=== PATIENT | female | born 1975 | race African-American/Black ===

== ENCOUNTER 2018-06-02 11:52 | Emergency (ER) | payer OTHER ==
[2018-06-02 12:23] VITALS: BP 117/78; PULSE 87; TEMP 97.4; BMI 40.7
--- NOTE | 2018-06-02 13:35 | PDOC ---
History of Present Illness - General Chief Complaint: Injury Stated Complaint: INJURY Time Seen by Provider: 06/02/18 12:38 History Source: Patient Exam Limitations: No Limitations - History of Present Illness Initial Comments: CHIEF COMPLAINT: 43 y/o afebrile female with no significant PMH c/o facial pain and swelling and left wrist pain s/p slip and fall down some stairs today. HISTORY OF PRESENT ILLNESS: The patient was at work today when she tripped over her dress and fell face first down more than 10 steps. She states she was able to get up and walk to the bathroom but then realized her face was swollen and bruised. She denies LOC, neck pain, n/v/d, dizziness, changes in vision/ hearing, n/v/d, CP, SOB, abd pain, back pain, numbness/tingling in extremities. The patient states she is starting to have a headache now. Vital signs on arrival are within normal limits. REVIEW OF SYSTEMS: GENERAL/CONSTITUTIONAL: No fever/chills. No weakness. No weight change. HEAD, EYES, EARS, NOSE AND THROAT: +swelling and bruising to face. No change in vision. No ear pain or discharge. No sore throat. CARDIOVASCULAR: No chest pain or shortness of breath. RESPIRATORY: No cough, wheezing, or hemoptysis. GASTROINTESTINAL: No abd pain, nausea, vomiting, diarrhea. GENITOURINARY: No dysuria, frequency, or change in urination. MUSCULOSKELETAL: +left wrist pain. No neck or back pain. SKIN: No rash or easy bruising. NEUROLOGIC: +headache. No vertigo, loss of consciousness, or loss of sensation. PHYSICAL EXAM: GENERAL: The patient is awake, alert, and fully oriented, in no acute distress. She is well appearing, ambulatory, in NAD or obvious discomfort, speaks in full sentences without difficulty. HEAD: Few small hematomas to forehead NECK: No midline cervical spine TTP or step offs. Full ROM of cervical spine. ENT: Pupils equal, round and reactive to light, extraocular movements intact, sclera anicteric, conjunctiva clear. Some ecchymosis to b/l infraorbital regions, worse on left eye. Some superficial swelling to left upper eyelid. Swelling and ecchymosis to bridge of nose with superficial abrasion to bridge of nose. No crepitus or obvious deformities to face. No nasal septal hematomas LUNGS: Clear to auscultation bilaterally. Normal excursion. No respiratory distress or use of accessory muscles. CV: RRR, S1/S2, no MRG. Cap refill < 2 sec. ABDOMEN: Soft, non-distended, non-tender even to deep palpation, no hepatomegaly or splenomegaly, no masses. EXTREMITIES: Normal range of motion, no edema. TTP of left wrist. NEUROLOGICAL: Normal speech, normal gait. CN II-XII grossly intact. SKIN: Warm, dry, normal turgor, no rashes or lesions noted. Past History - Past Medical History Allergies/Adverse Reactions: Allergies Allergy/AdvReac Type Severity Reaction Status Date / Time No Known Allergies Allergy Verified 03/14/14 18:25 Home Medications: Ambulatory Orders Cephalexin Monohydrate [Keflex -] 500 mg PO Q6H #27 capsule 03/14/14 Diphenhydramine HCl [Benadryl Capsules -] 25 mg PO Q4H PRN #18 capsule 03/14/14 No Home Medications 0 dose .ROUTE UTDICT 03/14/14 Cancer: No Cardiac Disorders: No CVA: No COPD: No DVT: No Dementia: No - Suicide/Smoking/Psychosocial Hx Smoking History: Never smoked Have you smoked in the past 12 months: No Information on smoking cessation initiated: No Hx Alcohol Use: No Drug/Substance Use Hx: No Substance Use Type: None *Physical Exam - Vital Signs Last Vital Signs Temp Pulse Resp BP Pulse Ox 97.4 F L 87 20 117/78 99 06/02/18 12:20 06/02/18 12:20 06/02/18 12:20 06/02/18 12:20 06/02/18 12:20 ED Treatment Course - ADDITIONAL ORDERS Additional order review: Laboratory Results 06/02/18 13:00 Urine HCG, Qual Negative - RADIOLOGY Radiology Studies Ordered: Category Date Time Status FACIAL BONES CT W/O CONTRAST [CT] Stat CT Scan 06/02/18 12:[address] WITHOUT CONTRAST [CT] Stat CT Scan 06/02/18 12:58 Ordered WRIST W/HAND-LEFT* [RAD] Stat Radiology 06/02/18 12:58 Ordered Medical Decision Making - Medical Decision Making A/P: 43 y/o female with trip and fall down > 10 steps face first. Plan is as follows: 1. hcg 2. Head CT 3. Facial bones CT 4. Left wrist xray Hcg - negative Head CT IMPRESSION: No evidence of lesion or hemorrhage Facial bones CT IMPRESSION: Minimally depressed fracture in left side of the nasal bone with overlying soft tissue swelling. Otherwise, no gross fracture is identified. Both orbits are intact. Subcentimeter retention cyst versus polyp in the left maxillary antrum, inferior medial Left wrist xray IMPRESSION: (wet read) No acute pathology. Gave the patient her results. Gave toradol IM for pain/swelling. Suggested RICE instructions and f/u with liudmila/facial surgeon. The patient verbalizes understanding of all instructions, has no further questions and is awaiting discharge. *DC/Admit/Observation/Transfer Diagnosis at time of Disposition: Fall Qualifiers: Encounter type: initial encounter Qualified Code(s): W19.XXXA - Unspecified fall, initial encounter Head injury Qualifiers: Encounter type: initial encounter Qualified Code(s): S09.90XA - Unspecified injury of head, initial encounter Nasal bone fracture Qualifiers: Encounter type: initial encounter Fracture type: closed Qualified Code(s): S02.2XXA - Fracture of nasal bones, initial encounter for closed fracture - Discharge Dispostion Disposition: HOME Condition at time of disposition: Good - Referrals Referrals: Sally Alexander MD [Primary Care Provider] - Leland Shaikh MD [Non Staff, Medical] - - Patient Instructions Printed Discharge Instructions: DI for Closed Head Injury, DI for Nose Fracture , How To Perform RICE (Rest, Ice, Compress, Elevate) Additional Instructions: Discharge Instructions: -You have a nasal bone fracture -Your head CT was negative for bleeding in the brain -Your wrist xray was negative for broken bones -Please take over the counter Ibuprofen every 6 hours with food for pain -Ice affected areas to help with swelling -Follow up with referred liudmila-facial surgeon as soon as possible regarding nasal bone fracture. - Post Discharge Activity Forms/Work/School Notes: Back to Work
[2018-06-02] MEDS ORDERED: KETOROLAC TROMETHAMINE 60 MG/2 ML VIAL IM ONE (15:25)
[2018-06-02] MEDS ORDERED: KETOROLAC TROMETHAMINE 60 MG/2 ML VIAL ONE (15:32)
== END 2018-06-02 15:37 | disposition home or self-care (01) ==
LOC: JERFT 11:52
PROC: 3E0233Z Introduction of Anti-inflammatory into Muscle, Percutaneous Approach (ICD-10-PCS; principal; 2018-06-02)
DX: S02.2XXD Fracture of nasal bones, subsequent encounter for fracture with routine healing (principal); S00.83XA Contusion of other part of head, initial encounter; M25.532 Pain in left wrist; W10.8XXA Fall (on) (from) other stairs and steps, initial encounter; Y93.89 Activity, other specified; Y92.69 Other specified industrial and construction area as the place of occurrence of the external cause; Y99.0 Civilian activity done for income or pay
CPT/HCPCS: 70450-TC; 70486-TC; 73110-TC-LR-FY; 73130-TC-LR-FY; 84703; 99281-25

== ENCOUNTER 2024-02-25 04:45 | Day surgery (SDC) | payer BC ==
[2024-02-19 13:02] VITALS: BMI 44.6
[2024-02-25 09:17] VITALS: TEMP 97.8
[2024-02-25 11:25] VITALS: BP 109/74; PULSE 80; RESP 18
== END 2024-02-25 11:22 | disposition home or self-care (01) ==
LOC: JASU-ENDO 04:45
PROVIDERS: ATTEND Internal Medicine Gastroenterology
PROC: 0DJD8ZZ Inspection of Lower Intestinal Tract, Via Natural or Artificial Opening Endoscopic (ICD-10-PCS; principal; 2024-02-25 10:00)
DX: Z12.11 Encounter for screening for malignant neoplasm of colon (principal); K64.8 Other hemorrhoids
CPT/HCPCS: 81025

== ENCOUNTER 2024-09-05 19:24 | Emergency (ER) | payer BC ==
[2024-09-05 19:58] VITALS: BP 138/81; PULSE 93; RESP 16; TEMP 98.6; BMI 41.5
[2024-09-05] MEDS ORDERED: METHOCARBAMOL 500 MG TABLET ONE (20:27)
[2024-09-05] MEDS ORDERED: KETOROLAC TROMETHAMINE 30 MG/1 ML VIAL ONE (20:27)
[2024-09-05] MEDS: KETOROLAC TROMETHAMINE 30 MG/1 ML VIAL IM ONE (20:38)
[2024-09-05] MEDS: METHOCARBAMOL 750 MG TAB PO ONE (20:38)
== END 2024-09-05 21:03 | disposition home or self-care (01) ==
LOC: JER 19:24
PROC: 3E0133Z Introduction of Anti-inflammatory into Subcutaneous Tissue, Percutaneous Approach (ICD-10-PCS; principal; 2024-09-05)
DX: M94.0 Chondrocostal junction syndrome [Tietze] (principal)
CPT/HCPCS: 93005; 93010; 99284-25